=== PATIENT | female | born 1945 | race Caucasian/White ===

== ENCOUNTER 2016-04-19 07:56 | Day surgery (SDC) | payer MEDICARE ==
[2016-05-15] MEDS ORDERED: MULTIVITAMINS1 EAC1 PO (06:09)
[2016-05-15] MEDS ORDERED: TIKOSYN500 MCG PO (06:10)
[2016-05-15] MEDS ORDERED: LASIX DPS40 MG PO (06:10)
[2016-05-15] MEDS ORDERED: METOPROLOL TART25 MG PO (06:11)
[2016-05-15] MEDS ORDERED: COUMADIN5 MG PO (06:11)
[2016-05-15] MEDS ORDERED: COUMADIN2.5 MG PO (06:11)
[2016-05-15] MEDS ORDERED: HUMALOG100 UNIT/1 SQ ×2 (06:13)
[2016-05-15] MEDS ORDERED: COMBIGAN5 ML OU (06:14)
[2016-05-15] MEDS ORDERED: TRUSOPT 2% DPS10 ML OU (06:14)
[2016-05-15] MEDS ORDERED: LORTAB 10-3251 EACH PO (06:14)
[2016-05-15] MEDS ORDERED: ERYTHROMYCIN3.5 GM TP (06:17)
== END 2016-04-19 09:10 | disposition home or self-care (01) ==
LOC: SSS
DX: I48.1 Persistent atrial fibrillation (principal); I10 Essential (primary) hypertension; I34.0 Nonrheumatic mitral (valve) insufficiency; E11.9 Type 2 diabetes mellitus without complications; Z53.8 Procedure and treatment not carried out for other reasons; Z88.5 Allergy status to narcotic agent; Z87.891 Personal history of nicotine dependence; Z79.899 Other long term (current) drug therapy; Z79.891 Long term (current) use of opiate analgesic

== ENCOUNTER 2016-05-13 07:46 | Inpatient (IN) | payer MEDICARE ==
[2016-05-15] MEDS ORDERED: MULTIVITAMINS1 EAC1 PO (06:09)
[2016-05-15] MEDS ORDERED: TIKOSYN500 MCG PO (06:10)
[2016-05-15] MEDS ORDERED: LASIX DPS40 MG PO (06:10)
[2016-05-15] MEDS ORDERED: COUMADIN2.5 MG PO (06:11)
[2016-05-15] MEDS ORDERED: COUMADIN5 MG PO (06:11)
[2016-05-15] MEDS ORDERED: METOPROLOL TART25 MG PO (06:11)
[2016-05-15] MEDS ORDERED: HUMALOG100 UNIT/1 SQ ×2 (06:13)
[2016-05-15] MEDS ORDERED: LORTAB 10-3251 EACH PO (06:14)
[2016-05-15] MEDS ORDERED: COMBIGAN5 ML OU (06:14)
[2016-05-15] MEDS ORDERED: TRUSOPT 2% DPS10 ML OU (06:14)
[2016-05-15] MEDS ORDERED: ERYTHROMYCIN3.5 GM TP (06:17)
== END 2016-05-14 11:25 | disposition home or self-care (01) | DRG 243 ==
DX: I49.5 Sick sinus syndrome (principal); I48.1 Persistent atrial fibrillation; N17.9 Acute kidney failure, unspecified; E11.51 Type 2 diabetes mellitus with diabetic peripheral angiopathy without gangrene; Z68.41 Body mass index [BMI] 40.0-44.9, adult; T37.0X5A Adverse effect of sulfonamides, initial encounter; I10 Essential (primary) hypertension; E66.9 Obesity, unspecified; I34.0 Nonrheumatic mitral (valve) insufficiency; H40.9 Unspecified glaucoma; Z79.01 Long term (current) use of anticoagulants; Z87.891 Personal history of nicotine dependence; Z79.4 Long term (current) use of insulin

== ENCOUNTER → 2016-07-31 | Outpatient (CLI) | payer MEDICARE ==
[~2016-07-31] MED LIST: COMBIGAN5 ML OU; COUMADIN2.5 MG PO; COUMADIN5 MG PO; ERYTHROMYCIN3.5 GM TP; HUMALOG100 UNIT/1 SQ; LASIX DPS40 MG PO; LORTAB 10-3251 EACH PO; METOPROLOL TART25 MG PO; MULTIVITAMINS1 EAC1 PO; TIKOSYN500 MCG PO; TRUSOPT 2% DPS10 ML OU
== END | disposition home or self-care (01) ==
LOC: RAD.S 08:55
DX: Z12.31 Encounter for screening mammogram for malignant neoplasm of breast (principal); R92.1 Mammographic calcification found on diagnostic imaging of breast